=== PATIENT | female | born 1995 | race Caucasian/White ===

== ENCOUNTER 2017-01-18 12:08 | Emergency (ER) | payer BC ==
[~2017-01-18] VITALS: Ht 165.1 cm; Wt 52.0 kg
[2017-01-18 12:11] VITALS: BP 131/75; PULSE 16; PULSE 61; RESP 28; TEMP 98.3; O2SAT 98
--- NOTE | 2017-01-18 12:52 | PD ---
HPI Chief Complaint: Respiratory Symptoms Time Seen by Provider: 12:50 Travel History International Travel<30 days: No Contact w/Intl Traveler<30days: No Traveled to known affect area: No History of Present Illness HPI 21-year-old female presents to the emergency department for evaluation of an asthma attack that happened just prior to arrival. Patient states she is feeling better at this time. She states that she does not have her albuterol inhaler and has not used it. Patient states that the last asthma exacerbation she had was approximately 3 months ago. She states that she was given some steroids and albuterol nebulizer and it resolved. Patient states she has a slight dry cough. No fevers or chills. No abdominal pain. No nausea, vomiting , diarrhea. Patient denies any other medical problems. She denies . Patient states she has had asthma all her life. PFSH Past Medical History Respiratory: Yes (ASTHMA) Social History Alcohol Use: No Tobacco Use: No Substance Use: No Allergies-Medications (Allergen,Severity, Reaction): Coded Allergies: No Known Allergies (Unverified , 01/18/17) Reported Meds & Prescriptions Reported Meds & Active Scripts Active No Active Prescriptions or Reported Medications Review of Systems Except as stated in HPI: all other systems reviewed are Neg Physical Exam Narrative GENERAL: Well-nourished, well-developed female patient, ambulatory. Afebrile. SKIN: Focused skin assessment warm/dry. HEAD: Normocephalic. Atraumatic. EYES: No scleral icterus. No injection or drainage. NECK: Supple, trachea midline. No JVD or lymphadenopathy. CARDIOVASCULAR: Regular rate and rhythm without murmurs, gallops, or rubs. RESPIRATORY: Breath sounds equal bilaterally. No accessory muscle use. Lungs sounds are clear to auscultation. GASTROINTESTINAL: Abdomen soft, non-tender, nondistended. MUSCULOSKELETAL: No cyanosis, or edema. BACK: Nontender without obvious deformity. No CVA tenderness. Data Data Last Documented VS Vital Signs Date Time Temp Pulse Resp B/P Pulse Ox O2 Delivery O2 Flow Rate FiO2 01/18/17 12:58 72 15 100 Room Air 01/18/17 12:11 98.3 131/75 Orders Prednisone (Deltasone) (01/18/17 13:00) Albuterol-Ipratropium Neb (Duoneb Neb) (01/18/17 13:00) MDM Medical Decision Making Medical Screen Exam Complete: Yes Emergency Medical Condition: Yes Medical Record Reviewed: Yes Differential Diagnosis Asthma exacerbation versus viral URI versus bronchitis Narrative Course 21-year-old female presents to the emergency department stating that she had an asthma exacerbation just prior to arrival. She states she is feeling better at this time. She is out of her albuterol inhaler. Physical exam is reassuring. Patient appears well on exam. Patient is given DuoNeb 2 and prednisone 60 mg by mouth. Upon reassessment, patient states she feels 100% and would like to go home. Lungs sounds are clear to auscultation. Patient appears well. Patient will be discharged with a prescription for an albuterol inhaler and prednisone. Patient verbalizes agreement. She is to return for any acute worsening of symptoms. The patient was discharged in stable condition with instructions, including return instructions and follow up instructions. Diagnosis Primary Impression: Asthma exacerbation Referrals: Primary Care Physician call for appointment Patient Instructions: Asthma (ED), General Instructions Departure Forms: Tests/Procedures, Work Release Enter return to work date: Jan 19, 2017 Additional Instructions: Use albuterol inhaler as directed as needed for shortness of breath/wheezing. Take prednisone as directed. Start this tomorrow. Follow-up with your primary care physician. Return to the emergency department for any acute worsening of symptoms. Med/Other Pt SpecificInfo: Prescription(s) given Scripts Prednisone 20 Mg Tab40 Mg PO DAILY 3 Days Ref 0 Take 40 mg (2 tablets) daily for 5 days Prov:Misty Segal 01/18/17 Albuterol 18 GM Inh (Ventolin Hfa 18 GM Inh)90 Mcg/Act Aer1 Puff INH Q4H PRN ( SHORTNESS OF BREATH) #1 INHALER Ref 0 Prov:Misty Segal 01/18/17 Disposition: 01 DISCHARGE HOME Condition: Stable Misty Segal Jan 18, 2017 12:52
[2017-01-18] MEDS ORDERED: predniSONE 20 MG TAB PO ONE (13:00)
[2017-01-18] MEDS: RESP: ALBUTEROL 2.5 MG/IPRATROPIUM 0.5 MG NEB (SCH) INH ×2 (13:05→13:21)
[2017-01-18] MEDS ORDERED: VENTAER INH (13:38)
[2017-01-18] MEDS ORDERED: PRED20 PO (13:38)
== END 2017-01-18 14:52 | disposition home or self-care (01) ==
LOC: NEPD 12:08
DX: J45.901 Unspecified asthma with (acute) exacerbation (principal)
CPT/HCPCS: 94640; 94664; 99284; J7512